=== PATIENT | male | born 1990 | race Caucasian/White ===

== ENCOUNTER 2017-04-16 15:15 | Emergency (ER) | payer OTHER ==
[~2017-04-16] VITALS: Ht 185.4 cm; Wt 74.8 kg
[~2017-04-16 15:15] MED LIST: CEPHALEXIN500 MG PO; MOTRIN800 MG PO
[2017-04-16 15:17] VITALS: BP 131/89
[2017-04-16] MEDS ORDERED: ACETAMINOPHEN500 M4 PO (16:07)
--- NOTE | 2017-04-16 16:29 | ED SKIN/ALLERGY COMPLAINT ---
History of Present Illness General Chief Complaint: Skin Rash/ Abcess Stated Complaint: ABCESS LFT SIDE SENT BY PMD Vital Signs & Intake/Output Vital Signs & Intake/Output Vital Signs Date Time Temp Pulse Resp B/P B/P Pulse O2 O2 Flow FiO2 Mean Ox Delivery Rate 04/16 1517 98.4 76 16 131/89 99 Room Air Allergies Coded Allergies: NO KNOWN ALLERGIES (03/28/15) Reconcile Medications Acetaminophen 500 MG TABLET 2 TAB PO Q4H PRN PAIN (Reported) Triage Note: PT FROM PMD FOR ABSCESS TO LEFT SIDE OF ABDOMEN FIRST NOTICED A WEEK AGO. MD WAS UNABLE TO POP IT OR DRAIN IT, SO REFERRED PT TO ED TO HAVE IT DRAINED AND PACKED. AFEBRILE. TOOK TYLENOL APPROX 2 HOURS AGO AFEBRILE. 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
--- NOTE | 2017-04-16 17:03 | ED SKIN/ALLERGY COMPLAINT ---
History of Present Illness General Chief Complaint: Skin Rash/ Abcess Stated Complaint: ABCESS LFT SIDE SENT BY PMD Source: patient Exam Limitations: no limitations Vital Signs & Intake/Output Vital Signs & Intake/Output Vital Signs Date Time Temp Pulse Resp B/P B/P Pulse O2 O2 Flow FiO2 Mean Ox Delivery Rate 04/16 1517 98.4 76 16 131/89 99 Room Air Allergies Coded Allergies: NO KNOWN ALLERGIES (03/28/15) Reconcile Medications Acetaminophen 500 MG TABLET 2 TAB PO Q4H PRN PAIN (Reported) Triage Note: PT FROM PMD FOR ABSCESS TO LEFT SIDE OF ABDOMEN FIRST NOTICED A WEEK AGO. MD WAS UNABLE TO POP IT OR DRAIN IT, SO REFERRED PT TO ED TO HAVE IT DRAINED AND PACKED. AFEBRILE. TOOK TYLENOL APPROX 2 HOURS AGO AFEBRILE. TOOK TYLENOL APPROX 2 HOURS AGO Triage Nurses Notes Reviewed? yes Onset: Gradual Duration: getting worse Timing: recent history Severity: moderate Severity Numbers: 5 HPI: Patient is a 26-year-old male who presents emergency room with concerns of a 7 day history of gradually worsening left-sided abdominal erythema warmth tenderness and purulent discharge in which patient was evaluated today by primary care doctor was advised to present to emergency room for concerns of abscess for incision and drainage. Patient was not administered antibiotics. Patient denies any fever. Patient has positive history of MRSA (RITA MCDONALD) Past History Travel History Traveled to [place] past 21 day No Medical History Any Pertinent Medical History? 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 No (RITA MCDONALD) Review of Systems Review of Systems Constitutional: Reports: no symptoms. EENTM: Reports: no symptoms. Respiratory: Reports: no symptoms. Cardiovascular: Reports: no symptoms. GI: Reports: no symptoms. Genitourinary: Reports: no symptoms. Musculoskeletal: Reports: no symptoms. Skin: Reports: see HPI, erythema, lumps. Neurological/Psychological: Reports: no symptoms. Hematologic/Endocrine: Reports: no symptoms. Immunologic/Allergic: Reports: no symptoms. All Other Systems: Reviewed and Negative (RITA MCDONALD) Physical Exam Physical Exam General Appearance: no apparent distress, alert, comfortable Skin Problem Location: torso Comments: Well-developed well-nourished no apparent distress. HEENT: Atraumatic, extraocular motion intact Neck: Supple, no lymphadenopathy Back: Nontender Respiratory: No respiratory distress Extremities: No edema, full range of motion Neuro: Alert and oriented x3 Psych: Mood affect normal, normal memory normal judgment. Diagram Body: 1) 1.5 cm fluctuant area with mild purulent discharge with surrounding 5 cm erythema warmth and tenderness. (RITA MCDONALD) Progress Differential Diagnosis: abscess/cellulitis, allergic reaction, contact dermatitis, drug reaction, lyme disease Plan of Care: Orders Procedure Date/time Status TRUNK AREA CULTURE 04/16 1736 Active Microbiology 04/16 1736 TRUNK: Culture & Sensitivity - ORD 04/16 1736 TRUNK: Gram Stain - ORD Patient will be treated for concerns of cellulitis and abscess. Patient tolerated incision and drainage well. Upon discharge patient looks well no apparent distress and will comply with discharge instructions and had no questions. (RITA MCDONALD) Departure Departure Disposition: HOME OR SELF CARE Condition: Stable Clinical Impression Primary Impression: Abscess of skin of abdomen Secondary Impressions: Cellulitis of left abdominal wall Referrals: ARLIN AMBRIZ,ANDREW Duron (PCP/Family) Additional Instructions: As discussed begin [id number] ibuprofen as directed for pain and inflammation. Begin applying warm compresses to the area. Begin the prescription for Keflex and Bactrim as directed for the full course. If symptoms worsen or the redness significantly extends beyond the borders of the pen marking or if he develop a new concerning symptom return to emergency room immediately. Return to emergency room in 2 days for wound recheck. If the bandages fall off reapply with the extra bandages given to the emergency room Departure Forms: Customer Survey General Discharge Information (RITA MCDONALD) PA/TILE EDGER Co-Sign Statement Statement: ED Attending supervision documentation- [] I saw and evaluated the patient. I have also reviewed all the pertinent lab results and diagnostic results. I agree with the findings and the plan of care as documented in the PA's/TILE EDGER's documentation. [X] I have reviewed the ED Record and agree with the PA's/TILE EDGER's documentation. [] Additions or exceptions (if any) to the PAs/TILE EDGER's note and plan are summarized below: [] (TRICIA CSATILLO,ZULEIKA) Procedures Incision and Drainage Site: LEFT ABDOMINAL WALL Blade Size: 15 I & D Procedure: Yes: betadine prep, sterile drapes applied, sterile dressing applied. Progress: Initially using sterile technique of Betadine I applied 1% lidocaine approximately 5 mL for local anesthesia, I made a 1 cm incision using a 15 blade was mild purulent was excised, culture was obtained, and using 60 mL of sterile water mixed with Betadine I flushed the abscess cavity then applied Tegaderm with gauze. Patient tolerated well. Surgical pen aggarwal the erythema border of the cellulitis (RITA MCDONALD)
== END 2017-04-16 17:44 ==
LOC: ERH 15:15
DX: L02.211 Cutaneous abscess of abdominal wall (principal); L03.311 Cellulitis of abdominal wall
CPT/HCPCS: 87184; 87070; 87147

== ENCOUNTER 2017-04-19 13:16 | Emergency (ER) | payer OTHER ==
[~2017-04-19] VITALS: Ht 182.9 cm; Wt 74.8 kg
[~2017-04-19 13:16] MED LIST changes: +ACETAMINOPHEN500 M4 PO
[2017-04-19 13:20] VITALS: BP 127/81
--- NOTE | 2017-04-19 13:23 | ED ANIMAL BITE/WOUND CHECK ---
History of Present Illness General Chief Complaint: Suture Removal/Wound Recheck Stated Complaint: WOUND CHECK Source: patient Exam Limitations: no limitations Vital Signs & Intake/Output Vital Signs & Intake/Output Vital Signs Date Time Temp Pulse Resp B/P B/P Pulse O2 O2 Flow FiO2 Mean Ox Delivery Rate 04/19 1320 98.2 72 18 127/81 98 Room Air Allergies Coded Allergies: NO KNOWN ALLERGIES (03/28/15) Reconcile Medications Acetaminophen 500 MG TABLET 2 TAB PO Q4H PRN PAIN (Reported) Triage Note: HERE FOR WOUND CHECK TO LEFT ABDOMEN. HAD I AND D OF ABCESS ON 04/16. DRESSING IN PLACE. DENIES PAIN. Triage Nurses Notes Reviewed? yes Onset: Gradual Duration: better Timing: recent history Severity: mild Severity Numbers: 1 No Modifying Factors: none HPI: Patient's 26-year-old male who presents to emergency room with wound check request in which she was evaluated 3 days ago here at [facility] for abscess cellulitis to his left abdominal wall. Incision and drainage was performed by me. Patient was prescribed Keflex and Bactrim. Patient returns to the emergency room stating that he feels significantly improved and is changed his dressings once a day denies any fever chills pain and is otherwise without complaints. (RITA MCDONALD) Past History Travel History Traveled to [place] past 21 day No Medical History Any Pertinent Medical History? 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 No (RITA MCDONALD) Review of Systems Review of Systems Constitutional: Reports: see HPI. Denies: chills, fever. EENTM: Reports: no symptoms. Respiratory: Reports: no symptoms. Cardiovascular: Reports: no symptoms. GI: Reports: no symptoms. Genitourinary: Reports: no symptoms. Musculoskeletal: Reports: no symptoms. Skin: Reports: see HPI. Neurological/Psychological: Reports: no symptoms. Hematologic/Endocrine: Reports: no symptoms. Immunologic/Allergic: Reports: no symptoms. All Other Systems: Reviewed and Negative (RITA MCDONALD) Physical Exam Physical Exam General Appearance: no apparent distress, alert, comfortable Head: atraumatic Eyes: Bilateral: normal appearance. Ears, Nose, Throat: hearing grossly normal Neck: normal inspection Respiratory: normal breath sounds Gastrointestinal: soft Extremities: normal range of motion Skin: normal color Diagram Body: 1) 1 CM incision noted with no surrounding erythema no warmth minimal superficial purulent discharge noted upon removal of the gauze and Tegaderm No surrounding fluctuance or induration (RITA MCDONALD) Progress Differential Diagnosis: abscess, cellulitis Plan of Care: Cellulitis on exam has resolved. I reapplied the incision site with gauze and Tegaderm. Culture determines MRSA and which is susceptible to Bactrim. Patient was strongly advised to follow-up with discharge instructions and he will comply (RITA MCDONALD) Departure Departure Disposition: HOME OR SELF CARE Condition: Stable Clinical Impression Primary Impression: Abscess of abdominal wall Secondary Impressions: Cellulitis of left abdominal wall Referrals: ARLIN AMBRIZ,ANDREW Duron (PCP/Family) Additional Instructions: As discussed continue your previously prescribed medications of antibiotics as directed for the full course. Continue to change the dressings as directed. If you note worsening symptoms or developing new concerning symptom return to the emergency room Departure Forms: Customer Survey General Discharge Information (RITA MCDONALD) PA/SUPERVISOR RIVETING Co-Sign Statement Statement: ED Attending supervision documentation- [] I saw and evaluated the patient. I have also reviewed all the pertinent lab results and diagnostic results. I agree with the findings and the plan of care as documented in the PA's/SUPERVISOR RIVETING's documentation. [X] I have reviewed the ED Record and agree with the PA's/SUPERVISOR RIVETING's documentation. [] Additions or exceptions (if any) to the PAs/SUPERVISOR RIVETING's note and plan are summarized below: [] (TRICIA CASTILLO,ZULEIKA)
== END 2017-04-19 13:46 ==
LOC: ERH 13:16
DX: Z48.01 Encounter for change or removal of surgical wound dressing (principal)
CPT/HCPCS: 99281